=== PATIENT | female | born 1970 | race Caucasian/White ===

== ENCOUNTER 2020-11-13 14:37 | Emergency (ER) | payer OTHER, SELFPAY ==
[2020-11-13] VITALS (9 sets, daily range): BP systolic 130–193; BP diastolic 92–116; PULSE 77–96; RESP 19–29; TEMP 37.1; O2SAT 95–99
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
[2020-11-13 15:12] LABS: Add Manual Diff / Slide Review NO; Basophils Absolute Auto 0 /uL (0-100); Basophils Percent Auto 0.6 % (0-2); Eosinophils Absolute Auto 100 /uL (0-450); Eosinophils Percent Auto 1.6 % (2-4); Hematocrit 44.3 % (36-46); Hemoglobin 15.1 g/dL (12.0-16.0); Lymphocytes Absolute Auto 1100 /uL (1100-4500); Lymphocytes Percent Auto 18.2 % (25-40); Mean Corpuscular HGB Conc 34.2 % (30-36); Mean Corpuscular Hemoglobin 29.8 PG (26-34); Mean Corpuscular Volume 87.1 fL (80-100); Monocytes Absolute Auto 300 /uL (0-900); Monocytes Percent Auto 4.9 % (3-14); Neutrophils Absolute Auto 4600 /uL (1500-7000); Neutrophils Percent Auto 74.7 % (50-75); Platelet Count 245 X10^3/uL (150-400); Red Blood Cell Count 5.09 X10^6/uL (4.0-5.2); Red Cell Distribution Width 13.4 % (11.6-14.8); White Blood Cell Count 6.1 X10^3/uL (4.5-11.0)
[2020-11-13 15:17] LABS: Alanine Aminotransferase 16 IU/L (<35); Albumin 4.4 g/dL (3.5-5.0); Albumin Globulin Ratio 1.4 (1.0-2.8); Alkaline Phosphatase 86 U/L (38-126); Aspartate Aminotransferase 30 IU/L (14-36); Bilirubin Total 0.3 mg/dL (0.2-1.3); Blood Urea Nitrogen 20 mg/dL (7-17); Calcium 9.5 mg/dL (8.4-10.2); Carbon Dioxide 27 mmol/L (22-32); Chloride 105 mmol/L (98-107); Estimated Glomerular Filt Rate > 60.0 mL/min (>60); Globulin 3.1 g/dL (1.7-4.1); Glucose 111 mg/dL (70-100); HEMOLYSIS < 15 (0-50); Lipase 95 U/L (23-300); Potassium 3.7 mmol/L (3.4-5.1); Sodium 138 mmol/L (137-145); Total Protein 7.5 g/dL (6.3-8.2)
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
[2020-11-13] MEDS: ACETAMINOPHEN 325 MG TABLET 650 MG PO (16:07)
[2020-11-13] MEDS: IBUPROFEN 400 MG TABLET PO (16:07)
== END 2020-11-13 16:36 | disposition home or self-care (01) ==
PROVIDERS: Emergency Provider Emergency Medicine; Referring Provider Emergency Medicine
DX: S70.01XA Contusion of right hip, initial encounter (principal); M79.601 Pain in right arm; V89.2XXA Person injured in unspecified motor-vehicle accident, traffic, initial encounter
CPT/HCPCS: 36415; 71260; 74177; 80053; 83690; 85025; 93005; 99284; Q9967

== ENCOUNTER 2023-11-13 14:50 | Emergency (ER) | payer OTHER, SELFPAY ==
[2023-11-13] VITALS (21 sets, daily range): BP systolic 164–218; BP diastolic 98–115; PULSE 74–93; RESP 15–24; TEMP 36.9; O2SAT 94–99; BMI 30.5
--- NOTE | 2023-11-13 19:04 | PC.NURSE ---
Pt reports a band like headache x5-6 days w/o relief from intermittent tyelonal/ibuprofen use.
--- NOTE | 2023-11-13 20:14 | ED.HA ---
HPI - Headache General Chief Complaint: Headache Stated Complaint: Head ache X 6 days Time Seen by Provider: 11/13/23 20:12 Mode of arrival: Family Vehicle History of Present Illness HPI Narrative: 53-year-old woman with a history of occasional headaches in the past none in the last number of years post menopause no other significant medical history and no prior diagnosis of hypertension presents with 5 days of headache. She describes it as starting in the right occiput radiating forward associated with light sensitivity, nausea. She is tried ibuprofen and Tylenol. She has been increasing fluids over the last number of days and has not found this helpful. She notes she has been constipated over the last couple of days which is somewhat unusual for her. No urinary symptoms, chest pain, palpitations. She does not describe this is the ?worst headache of her life? and she has not complaining of any acute neurologic findings otherwise. She describes no fevers does not feel that she is ill, no complaints that would suggest sinusitis or upper respiratory infection. Related Data Previous Rx's Medication Instructions Recorded lisinopril 20 mg tablet 20 mg PO DAILY #30 tabs 11/13/23 Allergies Allergy/AdvReac Type Severity Reaction Status Date / Time No Known Drug Allergies Allergy Verified 11/13/20 16:23 Review of Systems Review of Systems Narrative: Pertinent positive and negative findings as per HPI Patient History Medical History Hypothyroid Social History Smoking Status: Never smoker Smoking Status: Never smoker alcohol intake frequency: 0-2 drinks per day Substance Use Type: does not use Exam Initial Vital Signs Initial Vital Signs: Vital Signs Temperature 98.5 F 11/13/23 15:15 Pulse Rate 80 11/13/23 15:15 Respiratory Rate 16 11/13/23 15:15 Blood Pressure 218/106 H 11/13/23 15:15 Pulse Oximetry 99 11/13/23 15:15 Oxygen Delivery Method Room Air 11/13/23 15:15 General: Healthy appearing, in no acute distress. Able to give a complete and coherent history. Well-nourished well-developed HEENT: Moist mucous membranes, normal sclera with reactive pupils, Neck: No cervical adenopathy Respiratory: Lungs are clear to auscultation, no wheezing no rales no rhonchi. Full and symmetrical air movement Cardiac: Regular rate and rhythm no murmurs no bruits Abdomen: Soft, nontender, good bowel tones, no flank pain Skin: Warm and dry, no rashes Neurologic: Grossly neurologically intact with no obvious asymmetries or abnormalities Extremities: No trauma, well perfused Psych: Cooperative, appropriate insight and affect Course Orders Ordered: ED Orders 11/13/23 20:45 Complete Blood Count AUTO DIFF Stat Comprehensive Metabolic Panel Stat Troponin & CK Cardiac Panel Stat Discontinued Medications Dexamethasone (Dexamethasone 10 Mg/Ml Vial) 10 mg IV NOW ONE Stop: 11/13/23 20:18 Last Admin: 11/13/23 20:39 Dose: 10 mg Documented By: YAIMA Diphenhydramine HCl (Diphenhydramine 50 Mg/Ml Vial) 25 mg IV NOW ONE Stop: 11/13/23 20:18 Last Admin: 11/13/23 20:37 Dose: 25 mg Documented By: YAIMA Sodium Chloride (Normal Saline 0.9%) 1,000 mls @ 1,000 mls/hr IV BOLUS ONE Stop: 11/13/23 21:16 Last Infusion: 11/13/23 21:49 Dose: Infused Documented By: Admin: 11/13/23 20:45 Dose: 1,000 mls/hr Documented By: YAIMA Ketorolac Tromethamine (Ketorolac 30 Mg/Ml Vial) 15 mg IV NOW ONE Stop: 11/13/23 20:18 Last Admin: 11/13/23 20:35 Dose: 15 mg Documented By: YAIMA Prochlorperazine (Prochlorperazine 10 Mg/2 Ml Vial) 10 mg IV NOW ONE Stop: 11/13/23 20:18 Last Admin: 11/13/23 20:43 Dose: 10 mg Documented By: YAIMA Vital Signs Vital signs: Vital Signs - 8 hr 11/13/23 18:46 11/13/23 18:48 11/13/23 18:48 Pulse Rate 85 89 Respiratory Rate Blood Pressure 179/106 H Pulse Oximetry 97 99 Oxygen Delivery Method 11/13/23 18:53 11/13/23 18:53 11/13/23 19:00 Pulse Rate 84 Respiratory Rate Blood Pressure 180/110 H 185/98 H Pulse Oximetry 97 Oxygen Delivery Method 11/13/23 19:00 11/13/23 19:30 11/13/23 19:31 Pulse Rate 75 74 Respiratory Rate 17 Blood Pressure 164/99 H Pulse Oximetry 96 95 Oxygen Delivery Method Room Air 11/13/23 19:31 11/13/23 19:51 11/13/23 19:51 Pulse Rate 79 82 Respiratory Rate Blood Pressure 176/98 H Pulse Oximetry 96 95 Oxygen Delivery Method Room Air Room Air 11/13/23 20:00 11/13/23 20:00 11/13/23 20:30 Pulse Rate 76 Respiratory Rate 18 Blood Pressure 176/101 H 195/105 H Pulse Oximetry 94 Oxygen Delivery Method Room Air 11/13/23 20:30 11/13/23 20:43 11/13/23 21:00 Pulse Rate 77 77 79 Respiratory Rate 16 Blood Pressure 195/105 H Pulse Oximetry 97 98 Oxygen Delivery Method Room Air Room Air 11/13/23 21:03 11/13/23 21:03 11/13/23 21:33 Pulse Rate 83 83 Respiratory Rate 22 23 Blood Pressure 210/105 H Pulse Oximetry 98 99 Oxygen Delivery Method Room Air 11/13/23 21:35 11/13/23 21:35 11/13/23 22:00 Pulse Rate 79 82 Respiratory Rate 22 15 Blood Pressure 204/115 H Pulse Oximetry 96 95 Oxygen Delivery Method 11/13/23 22:00 11/13/23 22:05 11/13/23 22:06 Pulse Rate 90 Respiratory Rate 20 Blood Pressure 212/113 H 185/111 H Pulse Oximetry 94 Oxygen Delivery Method Room Air 11/13/23 22:06 Pulse Rate 86 Respiratory Rate 21 Blood Pressure Pulse Oximetry 96 Oxygen Delivery Method Room Air MDM - Headache Lab Data 11/13/23 20:45 11/13/23 20:45 Labs: Lab Results 11/13/23 Range/Units 20:45 WBC 9.0 (4.5-11.0) X10^3/uL RBC 4.90 (4.0-5.2) X10^6/uL Hgb 14.5 (12.0-16.0) g/dL Hct 42.8 (36-46) % MCV 87.4 (80-100) fL MCH 29.7 (26-34) PG MCHC 34.0 (30-36) % RDW 13.6 (11.6-14.8) % Plt Count 272 (150-400) X10^3/uL Neut % (Auto) 72.4 (50-75) % Lymph % (Auto) 21.9 L (25-40) % [place] % (Auto) 3.9 (3-14) % Eos % (Auto) 1.3 L (2-4) % Baso % (Auto) 0.5 (0-2) % Neut # (Auto) 6500 (5341-8547) /uL Lymph # (Auto) 2000 (7482-9324) /uL [place] # (Auto) 400 (0-900) /uL Eos # (Auto) 100 (0-450) /uL Baso # (Auto) 0 (0-100) /uL Sodium 139 (137-145) mmol/L Potassium 4.0 (3.4-5.1) mmol/L Chloride 107 (98-107) mmol/L Carbon Dioxide 26 (22-32) mmol/L BUN 18 H (7-17) mg/dL Creatinine 0.68 (0.52-1.04) mg/dL Estimated GFR > 60 (>60) mL/min BUN/Creatinine Ratio 26.5 H (6-22) Glucose 101 H (70-100) mg/dL Calcium 10.1 (8.4-10.2) mg/dL Total Bilirubin 0.4 (0.2-1.3) mg/dL AST 25 (14-36) IU/L ALT 23 (<35) IU/L Alkaline Phosphatase 77 (38-126) U/L Total Creatine Kinase 85 (30-135) U/L Troponin I < 0.012 (0.01-0.034) ng/mL Total Protein 7.4 (6.3-8.2) g/dL Albumin 4.4 (3.5-5.0) g/dL Globulin 3.0 (1.7-4.1) g/dL Albumin/Globulin Ratio 1.5 (1.0-2.8) Urine Dip Bedside Urine Glucose Negative Bedside Urine Bilirubin - Negative Bedside Urine Ketone - Negative Urine Specific [place] 1.015 Bedside Urine Occult Blood - Negative Bedside Urine pH 6.0 Bedside Urine Protein - Negative Bedside Urine Urobilinogen - Negative Bedside Urine Nitrite - Negative Bedside Urine Leukocytes - Negative Esterase MDM Narrative Medical decision making narrative: CC: Headache for 5 days Complicating co-morbidities: History of hypothyroidism Data collected from: patient Differential considered: Migraine, hypertension, meningitis, upper respiratory infection Exam documented above, pertinent findings include: Fairly benign exam. Neuro exam is entirely unremarkable Lab Test results independently reviewed as above. Pertinent findings: CBC is reassuring Chemistries are reassuring with normal renal function. Troponin is not elevated Treatments: Treatment for her headache includes fluids dexamethasone, Benadryl, Compazine and Toradol. Re-evaluations: On reassessment headache is entirely resolved Discussion: 53-year-old woman presents with 5 days of headache has not particularly had difficulties with headaches post menopause. She also noted that her blood pressure was elevated and has not had a diagnosis of hypertension but also has not checked. We opted to treat her headache and re-evaluate blood pressure. With the headache completely resolved her blood pressure remains fairly elevated and she has been in the emergency department for almost 8 hours. I believe she had a migraine variant headache that is now resolved. I suspect she also has essential hypertension. With shared decision-making we opted to start her on 20 mg of lisinopril daily and she will get a blood pressure cuff measure blood pressures approximately 2 hours after taking lisinopril daily and follow up with her primary care physician. We talked about the importance of daily exercise walking and losing as little as 10 lb as being a significant benefit in controlling blood pressure. Questions were answered reassurance is given she is safe for discharge Discharge Plan Departure Patient Disposition: Home Clinical Impression: Migraine Qualifiers: Migraine type: unspecified Status migrainosus presence: without status migrainosus Intractability: not intractable Qualified Code(s): G43.909 - Migraine, unspecified, not intractable, without status migrainosus Hypertension Qualifiers: Hypertension type: primary hypertension Qualified Code(s): I10 - Essential (primary) hypertension Instructions: DI for Migraine, DI for High Blood Pressure Activity Restrictions/Additional Instructions: Thank you for coming in today We treated you for migraine headache and your headache symptoms have entirely resolved. Your blood work was reassuring. Kidney function was normal. I see no sign of heart attack or heart attack like symptoms. Throughout your emergency room stay your blood pressure has been significantly elevated enough so that I believe beginning medications is going to be appropriate. The fact that your blood pressure remains elevated in your headache has resolved likely means they are 2 separate problems. I am going to suggest that you begin lisinopril 20 mg daily. We also talked about the importance of daily activity walking as little as 20 minutes a day can make a huge difference. Losing as little as 10 lb can also make a large difference in controlling blood pressure. We also need to have more data regarding your blood pressure and how the lisinopril as affecting you. Your goal blood pressure is actually a normal blood pressure of 120/70. I would recommend that you get a new blood pressure cuff, check your blood pressure a couple of hours after you have taking your lisinopril and keep track of the numbers. You need to schedule an appointment with your primary care physician and review the medication, how your feeling and what your blood pressure numbers are doing. Lisinopril prescription was electronically transmitted to [facility] in [place] If you find that you are getting worse or develop any new symptoms, please feel free to return to the emergency department for further evaluation. Prescriptions: New lisinopril 20 mg tablet 20 mg PO DAILY Qty: 30 3RF Stand Alone Forms: Patient Portal/API
[2023-11-13] MEDS: KETOROLAC 30 MG/ML VIAL 15 MG IV (20:35)
[2023-11-13] MEDS: diphenhydrAMINE 50 MG/ML VIAL 25 MG IV (20:37)
[2023-11-13] MEDS: DEXAMETHASONE 10 MG/ML VIAL IV (20:39)
[2023-11-13] MEDS: PROCHLORPERAZINE 10 MG/2 ML VIAL IV (20:43)
[2023-11-13] MEDS: SODIUM CHLORIDE 0.9% 1,000 ML 1000 ML IV (20:45)
[2023-11-13 21:08] LABS: Add Manual Diff / Slide Review NO; Basophils Absolute Auto 0 /uL (0-100); Basophils Percent Auto 0.5 % (0-2); Eosinophils Absolute Auto 100 /uL (0-450); Eosinophils Percent Auto 1.3 % (2-4); Hematocrit 42.8 % (36-46); Hemoglobin 14.5 g/dL (12.0-16.0); Lymphocytes Absolute Auto 2000 /uL (1100-4500); Lymphocytes Percent Auto 21.9 % (25-40); Mean Corpuscular Hemoglobin 29.7 PG (26-34); Mean Corpuscular Volume 87.4 fL (80-100); Monocytes Absolute Auto 400 /uL (0-900); Monocytes Percent Auto 3.9 % (3-14); Neutrophils Absolute Auto 6500 /uL (1500-7000); Neutrophils Percent Auto 72.4 % (50-75); Platelet Count 272 X10^3/uL (150-400); Red Cell Distribution Width 13.6 % (11.6-14.8)
[2023-11-13 21:22] LABS: Alanine Aminotransferase 23 IU/L (<35); Albumin 4.4 g/dL (3.5-5.0); Albumin Globulin Ratio 1.5 (1.0-2.8); Alkaline Phosphatase 77 U/L (38-126); Aspartate Aminotransferase 25 IU/L (14-36); BUN Creatinine Ratio 26.5 (6-22); Bilirubin Total 0.4 mg/dL (0.2-1.3); Blood Urea Nitrogen 18 mg/dL (7-17); Calcium 10.1 mg/dL (8.4-10.2); Carbon Dioxide 26 mmol/L (22-32); Chloride 107 mmol/L (98-107); Creatine Kinase 85 U/L (30-135); Estimated Glomerular Filt Rate > 60 mL/min (>60); Glucose 101 mg/dL (70-100); HEMOLYSIS < 15 (0-50); Sodium 139 mmol/L (137-145); Total Protein 7.4 g/dL (6.3-8.2)
[2023-11-13 21:34] LABS: Troponin I < 0.012 ng/mL (0.01-0.034)
== END 2023-11-13 23:37 | disposition home or self-care (01) ==
PROVIDERS: Emergency Provider Emergency Medicine
DX: G43.909 Migraine, unspecified, not intractable, without status migrainosus (principal); I10 Essential (primary) hypertension
CPT/HCPCS: 80053; 81003; 82550; 84484; 85025; 96361; 96374; 96375; 99283; 99284; J0780; J1100; J1200; J1885